=== PATIENT | female | born 1950 | race Caucasian/White ===

== ENCOUNTER → 2017-04-17 | Outpatient (CLI) | payer OTHER ==
[~2017-04-17] MED LIST: ADVIL PM CAPLE1 EACH PO; EQUATE MIGRAINE PO; EXCEDRIN CAPLE1 EACH; HYDROCODON-ACE1 EACH PO; IBUPROFEN200 M2 PO; NORCO 5-325 TA1 EACH PO; PRILOSEC; PRILOSEC 20 MG20 MG PO
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
== END ==
LOC: M.PC 01:33
DX: M47.22 Other spondylosis with radiculopathy, cervical region (principal); M54.5 Low back pain; R51 Headache; I10 Essential (primary) hypertension; Z79.891 Long term (current) use of opiate analgesic

== ENCOUNTER → 2017-04-24 | Outpatient (CLI) | payer OTHER ==
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
== END | disposition home or self-care (01) ==
LOC: M.PC 01:36
DX: M54.12 Radiculopathy, cervical region (principal); G89.29 Other chronic pain; R51 Headache; Z98.890 Other specified postprocedural states; Z91.041 Radiographic dye allergy status; Z88.8 Allergy status to other drugs, medicaments and biological substances; Z87.891 Personal history of nicotine dependence

== ENCOUNTER → 2017-06-19 | Outpatient (CLI) | payer OTHER ==
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
== END ==
LOC: M.PC 01:35
DX: M54.12 Radiculopathy, cervical region (principal); M54.9 Dorsalgia, unspecified; H91.92 Unspecified hearing loss, left ear; R51 Headache; Z87.19 Personal history of other diseases of the digestive system